=== PATIENT | male | born 1940 | race Caucasian/White ===

== ENCOUNTER 2019-10-05 10:06 | Inpatient (IN) | payer MEDICARE, BC, OTHER ==
[~2019-10-05] VITALS: Ht 190.5 cm; Wt 95.2 kg
--- OUTSIDE RECORDS SUMMARY | ~2019-10-05 | XMS | Clinical Summary ---
Demographics + + + | Address | [address] | | | [place] [address] | + + + | Home Phone | | + + + | Preferred Language | Unknown | + + + | Marital Status | | + + + | Mormon Affiliation | 1041 | + + + | Race | Unknown | + + + | Ethnic Group | Unknown | + + + Author + + + | Author | [facility] | | | and [place] | + + + | Organization | [facility] | | | and [place] | + + + | Address | Unknown | + + + | Phone | Unavailable | + + + Support + + +---------+ + | Name | Relationship | Address | Phone | + + +---------+ + | Josey Maxwell | ECON | Unknown | | + + +---------+ + Care Team Providers + +------+ + | Care Promotions Coordinator Name | Role | Phone | + +------+ + PCP | Unavailable | + +------+ + Allergies Not on File Medications Not on file Active Problems Not on file Social History + +-------+ +--------+------+ | Tobacco Use | Types | Packs/Day | Years | Date | | | | | Used | | + +-------+ +--------+------+ | Never Assessed | | | | | + +-------+ +--------+------+ + + + | Sex Assigned at | Date Recorded | | | | + + + | Not on file | | + + + Last Filed Vital Signs Not on file Plan of Treatment + + +-------+ + | Health Maintenance | Due Date | Last | Comments | | | | Done | | + + +-------+ + | Vaccine: | | | | | Dtap/Tdap/Td (1 - | 1 | | | | Tdap) | | | | + + +-------+ + | Vaccine: Zoster (1 | | | | | of 2) | 2 | | | + + +-------+ + | Vaccine: | | | | | Pneumococcal 65+ (1 | 7 | | | | of 1 - PPSV23) | | | | + + +-------+ + | Vaccine: Influenza | | | | | (#1) | 0 | | | + + +-------+ + Results Not on filefrom Last 3 Months"
--- OUTSIDE RECORDS SUMMARY | ~2019-10-05 | XMS | Clinical Summary ---
Demographics + + + | Address | [address] | | | [place] [address] | + + + | Home Phone | | + + + | Preferred Language | Unknown | + + + | Marital Status | | + + + | Quaker Affiliation | 1041 | + + + | Race | Unknown | + + + | Ethnic Group | Unknown | + + + Author + + + | Author | [facility] | | | and [place] | + + + | Organization | [facility] | | | and [...] Team Providers + +------+ + | Care Assistant Grocery Name | Role | Phone | + [...]
--- OUTSIDE RECORDS SUMMARY | ~2019-10-05 | XMS | Encounter Summary ---
Demographics + + + | Address | [address] | | | [place] [address] | + + + | Home Phone | | + + + | Preferred Language | Unknown | + + + | Marital Status | | + + + | Scientology Affiliation | 1041 | + + + | Race | Unknown | + + + | Ethnic Group | Unknown | + + + Author + + + | Author | [facility] | | | and [place] | + + + | Organization | [facility] | | | [...] Team Providers + +------+ + | Care Poultry Scalder Name | Role | Phone | + +------+ + PCP | Unavailable | + +------+ + Encounter Details +--------+ + + + + | Date | Type | Department | Care Team | Description | +--------+ + + + + | 01/23/ | [facility] | [facility] | | | | 1991 | Encounter | MED CTR XRAY [address] | | | | | | [place] [place] | | | | | | [place] [id number] | | | | | | [phone] | | | +--------+ + + + + Social History + +-------+ +--------+------+ | Tobacco [...] on file | | + + + documented as of this encounter Plan of Treatment Not on filedocumented as of this encounter Visit Diagnoses Not on filedocumented in this encounter"
--- OUTSIDE RECORDS SUMMARY | ~2019-10-05 | XMS | Encounter Summary ---
Demographics + + + | Address | [address] | | | [place] [address] | + + + | Home Phone | | + + + | Preferred Language | Unknown | + + + | Marital Status | | + + + | Evangelical Affiliation | 1041 | + + + | Race | Unknown | + + + | Ethnic Group | Unknown | + + + Author + + + | Author | [facility] | | | and [place] | + + + | Organization | [facility] | | | and [...] Team Providers + +------+ + | Care Small Products I Assembler Name | Role | Phone | + +------+ + PCP | Unavailable | + +------+ + Encounter Details +--------+ + + + + | Date | Type | Department | Care Team | Description | +--------+ + + + + | 01/23/ | [facility] | [facility] | | | | 1991 | Encounter | MED CTR XRAY [address] | | | | | | [address] [place] | | | | | | [place] [address] | | | | | | [phone] | | | +--------+ + + + [...]
[~2019-10-05 10:06] MED LIST: BETAMETHASONE D15 G3 TOP; BYSTOLIC20 MG PO; CARVEDILOL25 MG PO; CLARITIN10 M2 PO; COMBIVENT RESPIM4 GM INH; COUMADIN5 MG PO; ELIQUIS5 MG PO; FISH OIL 1,2001 EACH PO; FLUOXETINE HCL20 MG PO; FLUTICASONE PRO16 GM NS; HYDROCODON-ACE1 EA11 PO; INVOKAMET 150-1 EACH PO; INVOKANA300 MG PO; IRON159 MG PO; IRON325 M1 PO; JANUVIA100 MG PO; KELP150 MCG PO; LEVOTHYROXINE150 MCG PO; LIPITOR40 MG PO; LISINOPRIL20 MG PO; LOVENOX150 MG SUB-Q; LOVENOX40 MG SUB-Q; METFORMIN HCL500 MG PO; METOPROLOL SUCC25 MG PO; METOPROLOL TART25 MG PO; MILK OF MA400 MG/5 M PO; MIRALAX17 GM PO; MUCUS RELIEF D1 EACH PO; MUCUS RELIEF200 MG PO; NAPROXEN500 MG PO; NORCO 5-325 TA1 EACH PO; OMEPRAZOLE20 M1 PO; OXYCODONE HCL5 MG PO; PSEUDOEPHEDRINE60 MG PO; RANITIDINE HCL150 MG PO; VITAMIN C500 M2 PO; VITAMIN D31000 UNIT PO; XIGDUO XR 10 M1 EAC1 PO
[2019-10-05] MEDS ORDERED: TAMSULOSIN HCL0.4 MG PO (14:07)
[2019-10-05] MEDS ORDERED: GLYXAMBI 25 MG1 EACH PO (14:08)
--- NOTE | 2019-10-05 14:10 | NUR ---
79YR OLD MAN ADMITTED FROM ER VIA STRETCHER ACCOMPANIED BY TO ROOM 107. ABLE TO STAND AND MOVE TO BED IN ROOM UNASSISTED, PT IS ALERT/ORIENTED IN GOOD SPIRITS, REPORTS PAIN MEDICINE HE RECIEVED IN ER IS HELPING, NOTED RED, DRY AREA BACK OF NECK WITH QUITE A BIT OF SWELLING, ASKING FOR SOMETHING TO EAT, STATES HE IS REALLY HUNGRY, ORIENTED TO ROOM AND CALL LIGHT, LOOKING AT MENU, ORDERS NOTED.
[2019-10-05] MEDS ORDERED: STIOLTO RESPIMAT4 GM INH (14:13)
[2019-10-05] MEDS ORDERED: PREDNISONE10 MG PO (14:15)
[2019-10-05] MEDS ORDERED: SULFAMETHOXAZO1 EAC1 PO (14:16)
--- NOTE | 2019-10-05 14:54 | NUR ---
ATE 100% OF TRAY BROUGHT UP TO ROOM, RESTING COMFORTABLY. IS GOING HOME. PT WANTS TO TAKE A NAP. CALL LIGHT IN EASY REACH.
--- NOTE | 2019-10-05 15:40 | NUR ---
PT REQUESTING PAIN MEDICATION, STATES PRESSURE AND PAIN ACROSS BACK OF NECK IS BUILDING AGAIN, OXYCODONE 5MG GIVE, REPOSITIONED PILLOWS. CALL LIGHT IN EASY REACH.
--- NOTE | 2019-10-05 16:16 | NUR ---
PT REPORTS PAIN HAS NOT IMPROVED AFTER FIRST OXYCODONE. OXYCODONE REPEATED AT THIS TIME. WILL DISCUSS PAIN WITH DR HTOMASON.
--- NOTE | 2019-10-05 16:59 | NUR ---
PATIENT RESTING IN BED. VITAL SIGNS AND I&O DONE. HIGH BLOOD PRESSURE. RN NOTIFIED. CALL LIGHT WITHIN REACH. NO OTHER NEEDS AT THIS TIME
[2019-10-05] MEDS ORDERED: VENTOLIN HFA18 GM INH (17:10)
--- NOTE | 2019-10-05 17:38 | NUR ---
PT CONT TO REPORT NO PAIN RELIEF AFTER 2ND OXYCODONE. I HAD SPOKE WITH DR THOMASON AND DILAUDID WAS ORDERD AND GABAPENTIN FOR PAIN CONTROLL. DILAUDID 0.5MG IV GIVEN WITH GABAPENTIN. PT REPORTED GOOD RELIEF AFTER RECIEVING DILAUDID, SITTING UP EATING DINNER TRAY. STATES HE JUST NEEDS TO GET SOME SLEEP. STATES HE HAS NOT BEEN ABLE TO SLEEP FOR WEEKS.
--- NOTE | 2019-10-05 18:06 | NUR ---
PATIENT RESTING IN BED. PATIENT'S BLOOD PRESSURE RECHECKED AFTER HIS PAIN WENT DOWN. ICE WATER GIVEN. CALL LIGHT WITHIN REACH. NO OTHER NEEDS AT THIS TIME
--- NOTE | 2019-10-05 18:51 | NUR ---
PT ATE DINNER, UP TO BATHROOM AND CALLED FOR ASSISTANCE, STATES PAIN IN NECK WAS COMING BACK FULL FORCE. WARM PACK TO NECK WITH LITTLE RELIEF.DILAUDID 0.5MG IV GIVEN, BACK TO BED AND POSITIONED WITH PILLOWS FOR COMFORT. CALL LIGHT IN EASY REACH.
--- NOTE | 2019-10-05 19:01 | NUR ---
RECEIVED REPORT FROM WATSON BEASLEY. pt RESTING IN BED. DISCUSSED PAIN MANAGEMENT. NO REQUESTS AT THIS TIME. CALL LIGHT WITHIN REACH. WHITEBOARD UPDATED.
--- NOTE | 2019-10-05 20:27 | NUR ---
IN TO DO ASSESSMENT pt REPORTED 6/10 PAIN, PRN PAIN MEDICATION GIVEN (SEE MAR). DISCUSSED PAIN MANAGEMENT. ASSESSMENT DONE. VITALS AND I&O RECORDED. PROVIDED WATER. IV ABX INFUSING. NO FURTHER REQUESTS AT THIS TIME. CALL LIGHT WITHIN REACH.
--- NOTE | 2019-10-05 20:52 | NUR ---
PT CALLED D/T BEEPING IV PUMP. IV IS NOW SL. ASSISTED PT TO RESTROOM AND BACK TO BED. HE DENIES FURTHER NEEDS AT THIS TIME. CALL LIGHT IS CLOSE.
--- NOTE | 2019-10-05 22:28 | NUR ---
GAVE PT TWO PAPER TOWELS AND ANOTHER BLANKET PER HIS REQUEST. BEDSIDE TABLE AND CALL LIGHT IN REACH.
--- NOTE | 2019-10-05 22:55 | NUR ---
ROUNDED ON pt. REPORTED 5/10 PAIN. REFUSED PAIN MEDICATION AT THIS TIME "I WANT TO WAIT JUST A LITTLE BIT, I'LL CALL YOU WHEN I'M READY." PROVIDED FRESH WATER NO FURTHER REQUESTS AT THIS TIME. CALL LIGHT WITHIN REACH.
--- NOTE | 2019-10-06 00:42 | NUR ---
CALL LIGHT ON. pt UP TO VOID, SBA. PROVIDED WITH FRESH ICE WATER, AND PANTS. REPORTED THAT HIS PAIN IS "OKAY" AND REFUSED PAIN MEDICATION AT THIS TIME. RESTING IN BED. NO FURTHER REQUESTS AT THIS TIME. CALL SONA LINDSEY.
--- NOTE | 2019-10-06 01:02 | NUR ---
CALL LIGHT ON. pt REQUESTED PRN PAIN MEDS FOR 09/22 PAIN. GIVEN (SEE MAR). NO FURTHER REQUESTS AT THIS TIME. CALL LIGHT WITHIN REACH.
--- NOTE | 2019-10-06 02:10 | NUR ---
IN TO DO ASSESSMENT AND MEDS. pt RESTING IN BED. REPORTED THAT PAIN IS BETTER. REFUSED PAIN MEDICATION AT THIS TIME. NO CHANGES ON ASSESSMENT. IV ABX INFUSING. PROVIDED ICE. NO FURTHER REQUESTS AT THIS TIME. CALL LIGHT WITHIN REACH.
--- NOTE | 2019-10-06 03:30 | NUR ---
CALL LIGHT ON. IV ABX INFUSION COMPLETED. SL. NO FURTHER REQUESTS AT THIS TIME. PAIN "OKAY" REFUSED PAIN MEDICATION AT THIS TIME. CALL LIGHT WITHIN REACH.
--- NOTE | 2019-10-06 04:09 | NUR ---
CALL LIGHT ON. pt REQUESTED PRN PAIN MEDS FOR 08/22 PAIN. GIVEN (SEE MAR). PROVIDED ICE WATER. NO FURTHER REQUESTS AT THIS TIME. CALL LIGHT WITHIN REACH.
--- NOTE | 2019-10-06 06:45 | NUR ---
SCHEDULED MED PROVIDED. PT STATES PAIN IS 5/10, DENIES NEED FOR FURTHER INTERVENTION AT THIS TIME. NO OTHER NEEDS, CALL LIGHT IN REACH.
--- NOTE | 2019-10-06 07:05 | NUR ---
VITALS AND I&OS DONE AND CHARTED. BEDSIDE TABLE AND CALL LIGHT IN REACH.
--- NOTE | 2019-10-06 07:34 | NUR ---
Pt in bed resting, alert and oriented x4. Pt on room air, respirations even and non labored. Pt denies pain at this time. Personal supplies and call light within reach.
--- NOTE | 2019-10-06 07:57 | NUR ---
PATIENT RESTING IN BED. WHITE BOARD UPDATED. PATIENT REFUSED TO TAKE A SHOWER TODAY. CALL LIGHT WITHIN REACH. NO OTHER NEEDS AT THIS TIME
--- NOTE | 2019-10-06 09:32 | NUR ---
Oxycodone 10mg po admin for reports of 6/10 pain.
--- NOTE | 2019-10-06 09:42 | NUR ---
PATIENT RESTING IN BED. VITAL SIGNS AND I&O DONE. CALL LIGHT WITHIN REACH. NO OTHER NEEDS AT THIS TIME
--- NOTE | 2019-10-06 11:24 | NUR ---
CALL LIGHT ANSWERED. PATIENT ASKS FOR ICE AND DIET SODA. ICE AND DIET SODA GIVEN. CALL LIGHT WITHIN REACH. NO OTHER NEEDS AT THIS TIME
--- NOTE | 2019-10-06 13:11 | NUR ---
PATIENT RESTING IN BED. IN ROOM. VITAL SIGNS AND I&O DONE. CALL LIGHT WITHIN REACH. NO OTHER NEEDS AT THIS TIME
--- NOTE | 2019-10-06 15:13 | NUR ---
Pt resting in bed, eyes closed, respirations even and non labored. IV antibiotics infusing at this time. No notable distress. Personal supplies and call light within reach.
--- NOTE | 2019-10-06 16:59 | NUR ---
PATIENT RESTING IN BED. VITAL SIGNS AND I&O DONE. HIGH TEMPERATURE. RN NOTIFIED. CALL LIGHT WITHIN REACH. NO OTHER NEEDS AT THIS TIME
--- NOTE | 2019-10-06 17:01 | NUR ---
Notified Dr. Tirado regarding patient's most recent temp of 101.4f. Pending new orders to be placed for blood cultures and abx to be changed to vancomycin and ceftriaxone.
--- NOTE | 2019-10-06 17:33 | NUR ---
Blood cultures collected by lab. Admin Tylenol 650mg po for elevated temp of 101.4f.
--- NOTE | 2019-10-06 19:07 | NUR ---
RECEIVED REPORT FROM WATSON KNUTSON. YANELI CURRENTLY INFUSING. pt REPORTED THAT PAIN IS "OKAY" NO REQUESTS AT THIS TIME. WHITEBOARD UPDATED. CALL LIGHT WITHIN REACH.
--- NOTE | 2019-10-06 19:55 | NUR ---
IV PUMP BEEPING. ERROR RESOLVED. pt UP TO VOID AND BACK TO BED. ASSESSMENT DONE. pt REPORTED HIS PAIN IS "OKAY" REFUSED PAIN MEDICATION AT THIS TIME. RESTING IN BED. NO FURTHER REQUESTS AT THIS TIME. CALL LIGHT WITHIN REACH.
--- NOTE | 2019-10-06 21:28 | NUR ---
VITALS I&OS AND BLOOD SUGAR DONE AND CHARTED. EMPTIED GARBAGES. BEDSIDE TABLE AND CALL LIGHT IN REACH. PT NEEDS NOTHING AT THIS TIME.
--- NOTE | 2019-10-06 21:30 | NUR ---
IN TO DO VITALS AND GIVE MEDICATIONS. pt REPORTED HIS PAIN IS 3 OR 4/10. MEDICATIONS GIVEN (SEE MAR). NO FURTHER REQUESTS AT THIS TIME. CALL LIGHT WITHIN REACH.
--- NOTE | 2019-10-06 23:21 | NUR ---
ROUNDED ON pt. RESTING IN BED WITH EYES CLOSED, RESPIRATIONS REGULAR AND UNLABORED. CALL LIGHT WITHIN REACH.
--- NOTE | 2019-10-07 01:18 | NUR ---
ROUNDED ON pt. RESTING IN BED WITH EYES CLOSED, RESPIRATIONS REGULAR AND UNLABORED. CALL LIGHT WITHIN REACH.
--- NOTE | 2019-10-07 01:33 | NUR ---
ROOM TEMPERATURE INCREASED AND WARM BLANKET PROVIDED PER PT REQUEST. NO FURTHER NEEDS, CALL LIGHT IN REACH.
--- NOTE | 2019-10-07 02:53 | NUR ---
pt CALLED. REPORTED "TIGHTNESS IN MY NECK IT FEELS LIKE IT IS COMING BACK." REPORTED 7/10 PAIN. PRN PAIN MEDICATION GIVEN (SEE MAR). ASSESSMENT DONE. PROVIDED FRESH WATER. NO FURTHER REQUESTS AT THIS TIME. CALL LIGHT WITHIN REACH.
--- NOTE | 2019-10-07 05:15 | NUR ---
CALL LIGHT ON. pt REPORTED 8/10 PAIN. PRN PAIN MED GIVEN (SEE MAR). VITALS AND I&O RECORDED. NO FURTHER REQUESTS AT THIS TIME. CALL LIGHT WITHIN REACH.
--- NOTE | 2019-10-07 06:09 | NUR ---
pt RESTED MOST OF NIGHT. COMPLAINED OF PAIN IN EARLY AM. PRN PAIN MEDS X2. LEFT SIDE OF NECK REMAINS FIRM AND TENDER. VOIDING LARGE AMOUNTS. INDEPENDENT IN ROOM. IV SL, IV ABX. TOLERATING 60GM CARB DIET. ACCU CHECK ACHS, SS INSULIN. USES CALL LIGHT APPROPRIATLEY.
--- NOTE | 2019-10-07 07:40 | NUR ---
Pt in bed, alert and oriented x4. Pt on room air, respirations even and non labored. Pt reports his neck was very bothersome last night causing him to not sleep well. Breakfast ordered at this time. Oxycodone/tylenol in use for pain.
--- NOTE | 2019-10-07 10:23 | NUR ---
PATIENT IN BED RESTING. CALL LIGHT IN REACH. NO FURTHER NEEDS AT THIS TIME.
--- NOTE | 2019-10-07 11:03 | NUR ---
Oxycodone 10mg po admin for reports of 6/10 left neck pain.
--- NOTE | 2019-10-07 13:55 | NUR ---
PATIENT IN BED. CALL LIGHT IN REACH. NO FURTHER NEEDS AT THIS TIME.
--- NOTE | 2019-10-07 14:00 | NUR ---
Spoke with Jaime. He lives in [place] with his , Josey. He has good family support and plans on dc to [address]. will assist if he needs assistance after dc. Pt does not use any DME. States he and are active. Plans dc to home on discharge.
--- NOTE | 2019-10-07 15:01 | NUR ---
Patient resting, eyes closed, respirations are non labored. Pt has no notable distress. Personal supplies and call light within reach.
--- NOTE | 2019-10-07 18:07 | NUR ---
PATIENT IN BED WATCHING TV. PATIENT REFUSED LINEN CHANGE AT THIS TIME. CALL LIGHT IN REACH. NO FURTHER NEEDS AT THIS TIME.
--- NOTE | 2019-10-07 18:58 | NUR ---
Oxycodone 10mg po admin for reports of 7/10 pain.
--- NOTE | 2019-10-07 19:14 | NUR ---
RECEIVED REPORT FROM WATSON KNUTSON. pt UP TO VOID. CALL LIGHT WITHIN REACH. WHITEBOARD UPDATED.
--- NOTE | 2019-10-07 20:38 | NUR ---
IN TO DO ASSESSMENT AND MEDICATIONS. pt COMPLAINED OF 8/10 PAIN. DISCUSSED PAIN MANAGEMENT. DR BROWNING IN ROOM TO ASSESS, WILL PUT IN NEW ORDERS. VITALS AND I&O RECORDED. ASSESSMENT DONE. WOUND ON BACK OF HEAD OOZING PURULENT DRAINAGE. pt REFUSED TO HAVE BEDDING CHANGED AT THIS TIME. PROVIDED EDUCATION ON HYGIENE. WILL RETURN WITH PAIN MEDS WHEN AVAILABLE. CALL LIGHT WITHIN REACH.
--- NOTE | 2019-10-07 21:41 | NUR ---
IN TO GIVE PAIN MEDICATION, PAIN REMAINS 09/22. NO FURTHER REQUESTS AT THIS TIME. CALL LIGHT WITHIN REACH.
--- NOTE | 2019-10-07 22:18 | NUR ---
IN TO GIVE TYLENOL (SEE MAR). pt REPORTED A "SLIGHT" DECREASE IN PAIN, RATED 7/10. PROVIDED FOOD AND DRINK. NO FURTHER REQUESTS AT THIS TIME. WILL CALL WHEN UP TO VOID FOR PAIN MEDICATION. CALL LIGHT WITHIN REACH.
--- NOTE | 2019-10-07 23:28 | NUR ---
ROUNDED ON pt. RESTING WITH EYES CLOSED, RESPIRATIONS REGULAR AND UNLABORED. DID NOT WAKE TO QUIET VOICE. CALL LIGHT WITHIN REACH.
--- NOTE | 2019-10-08 00:15 | NUR ---
ROUNDED ON pt. RESTING IN BED WITH EYES CLOSED, RESPIRATIONS REGULAR. REMOVED FLUIDS NPO AT THIS TIME. CALL LIGHT WITHIN REACH.
--- NOTE | 2019-10-08 02:08 | NUR ---
ROUNDED ON pt. RESTING WITH EYES CLOSED, RESPIRATIONS REGULAR AND UNLABORED. CALL LIGHT WITHIN REACH.
--- NOTE | 2019-10-08 04:17 | NUR ---
ROUNDED ON pt. RESTING IN BED WITH EYES CLOSED, RESPIRATIONS REGULAR AND UNLABORED. CALL LIGHT WITHIN REACH.
--- NOTE | 2019-10-08 05:53 | NUR ---
WOKE pt. pt REPORTED "I SLEPT REALLY WELL, MY NECK MUST HAVE DRAINED A LOT." RATED PAIN 3/10. PRN PAIN MED GIVEN (SEE MAR). pt SHOWERED. PRE OP WIPES DONE. ASSESSMENT DONE. NECK APPEARS SLIGHTLY LESS SWOLLEN. STILL RED AND DRAINING. FRESH LINENS. VITALS AND I&O RECORDED. CALL LIGHT WITHIN REACH.
--- NOTE | 2019-10-08 07:51 | NUR ---
Pt resting, eyes closed, respirations even and non labored. Pt has no notable distress. Personal supplies and call light within reach.
--- NOTE | 2019-10-08 08:34 | NUR ---
PATIENT AWAKE IN BED. READY TO GO TO CT. WHITE BOARD UPDATED.
--- NOTE | 2019-10-08 09:00 | NUR ---
In to speak with pt. He is going for surgery today for abcess on neck.
--- NOTE | 2019-10-08 09:01 | NUR ---
PATIENT BACK TO ROOM FROM CT. IV FLUIDS RECONNECTED. PATIENT IS AWAKE AND ORIENTED DENYING ANY PAIN AT THIS TIME. VITALS BEING TAKEN BY HOLISTIC SPECIALIST. FLUIDS RESTARTED. PATIENT LYING SEMI-FOWLERS WITH CALL LIGHT AND BEDSIDE TABLE WITHIN REACH. PATIENT EDUCATED ON POSSIBLY NOT TAKING HIS MEDICATIONS PRIOR TO PROCEDURE TODAY BUT THAT WE MY GIVE HIS BP MEDICATION BEFORE. PATIENT DENIES ANY OTHER NEEDS AT THIS TIME.
--- NOTE | 2019-10-08 09:03 | NUR ---
PATIENT VITAL SIGNS DONE AND I&O'S. NO FURTHER NEEDS AT THIS TIME.
--- NOTE | 2019-10-08 10:07 | NUR ---
Pt off to surgery at this time. Morning dose of lopressor admin per Dr. Hermosillo's request.
--- NOTE | 2019-10-08 10:19 | NUR ---
PATIENT LINENS CHANGED AND PATIENT HAD A SHOWER EARLY THIS MORNING. NO FURTHER NEEDS AT THIS TIME.
--- NOTE | 2019-10-08 10:34 | NUR ---
MED REC COMPLETE
--- NOTE | 2019-10-08 11:28 | NUR ---
10/08/19 1128 Val Whitaker 1121-PATIENT ARRIVED TO PACU ON 6L MASK NONAROUSABLE. RR EVEN. ORAL AIRWAY IN PLACE. DRESSING TO LEFT NECK CDI. AFIB. IVF INFUSING. NEW IV TO LEFT HAND WILL REMOVE RIGHT ARM IV.
--- NOTE | 2019-10-08 11:59 | NUR ---
PT TAKEN TO OR FOR SURGERY. WILL FOLLOW UPON RETURN
--- NOTE | 2019-10-08 12:15 | NUR ---
PT RETURNED FROM PACU. REPORT RECEIVED FROM WATSON ROSARIO. PT RESTING IN BED. DROWSY BUT AWAKENS TO VOICE. PT REPORTS 7/10 PAIN IN BACK OF NECK. SEE MAR FOR MEDICATION GIVEN. PT REPORTS HUNGER. JELLO PROVIDED. PT TOLERATES WITHOUT NASUEA. ASSESSMENT DONE. DRESSING TO BACK OF NEXT SHOWS MODERATE AMOUNT OF RED DRAINAGE. MEDICATIONS GIVEN. CBG = 177. PT TOLERATING PO. INSULIN GIVEN. CPOX IN PLACE WITH O2 DROPPING TO 88% WHEN PT IS SLEEPING. O2 AT 2L BY NC PLACED. O2 SATURATIONS CLIMB TO ABOVE 92%. PTS AT BEDSIDE. 7-UP AND WALLY PROVIDED NO ADDITIONAL REQUESTS OR COMPLAINTS AT THIS TIME. CALL LIGHT WITHIN REACH.
--- NOTE | 2019-10-08 13:17 | NUR ---
VITALS AND ASSESMENT DUE. PT REPORTS PAIN IS IMPROVING NOW 07/23. PT DENIES NEED FOR ADDITIONAL PAIN MEDICATION AT THIS TIME. ASSESSMENT DONE. MODERATE AMOUTN OF RED DRESSING REMAINS ON BANDAGE, SMALL AMOUNT OF NEW DRAINAGE NOTED. O2 SATURATIONS IMPROVING WITH 2L O2 BY NC, NOW 95-98%. PT REMAINS ON 2L AT THIS TIME. MEDICATIONS FROM THIS MORNING GIVEN. PT TOLERATING 7-UP AND CRACKERS. NO ADDITIONAL REQUESTS OR COMPLAINTS AT THIS TIME. CALL LIGHT WITHIN REACH.
--- NOTE | 2019-10-08 13:45 | NUR ---
REPORT GIVEN TO VINCENT HUFFMAN RN. MED/SURG STAFF RESUMING CARE OF PT.
--- NOTE | 2019-10-08 14:22 | NUR ---
Vital signs and assessment complete. Pt awake, a&ox4, on 2L oxygen per nc, respirations even and non labored. Pt reports pain to left neck is improving, 4/10 pain scale level reported. IV LR infusing at this time at 85ml/hr. Dressing to left neck is CDI. Pt denies sob and or airway distress, hob elevated. at bedside. Saline crackers provided to pt per his request. Pt denies needs. Personal supplies and call light within reach.
--- NOTE | 2019-10-08 15:23 | NUR ---
VITAL SIGNS DONE BY NURSE FOR POST OP. NO I&O'S DOCUMENTED PER PATIENT IN SURGERY.
--- NOTE | 2019-10-08 15:28 | NUR ---
Tylenol 1000mg po admin per pt request for reports of 6/10 left neck pain. Pt resting, reports he is doing fine. Left neck dressing is CDI. Vital signs are stable. LR Infusing at 85ml/hr. Pt has no need. cpox intact, 94% on 2l nc. Personal supllies and call light within reach.
--- NOTE | 2019-10-08 16:36 | NUR ---
TO PATIENT ROOM FOR VITALS. PATIENT LYING SEMI-FOWLERS WITH EYES CLOSED. PATIENT STATES "HOW MUCH JUICE DO I HAVE LEFT?" LOOKING AT THE IV FLUID HANGING. PT TOLD THAT THERE IS ABOUT HALF A BAG OR 500ML LEFT. PATIENT IS SATISFIED. PAIN ASSESSED, PATIENT STATES, "IT'S ABOUT A THREE OR FOUR, NOT BAD." VITALS TAKEN, ALL WNL. PATIENT DENIES ANY FURTHER NEEDS AT THIS TIME. CALL LIGHT AND BEDSIDE TABLE WITHIN REACH.
--- NOTE | 2019-10-08 18:00 | NUR ---
TO PATIENT ROOM FOR DRESSING CHANGE. DRESSING SATURATED WITH SANGUINEOUS FLUID. TWO STRIPS OF GAUZE NOTED TO BE PACKED INTO THE SURGICAL INCISIONS. OUTER ABD PADS REMOVED, AREA CLEANED OF DRY BLOOD AND GAUZE AND ABD PADS REAPPLIED TO AREA. ABSORBANT PAD PLACED BEHIND PATIENTS HEAD TO CATCH ANY DRAINAGE THAT MAY BE PRESENT THIS EVENING. PATIENT EDUCATED ON THE NEED TO CHANGE THE DRESSING IF IT BECOMES SATURATED AGAIN. PATIENT VERBALIZES UNDERSTANDING. PATIENT DENIES PAIN AT THE SITE AND STATES, "IT'S A LOT BETTER THAN BEFORE." PATIENT LYING IN BED SEMI-FOWLERS WITH SCDS ON, AND BEDSIDE TABLE AND CALL LIGHT WITHIN REACH. PATIENT GIVEN ICE FOR DIET SODA AND CRACKERS PER PATIENT REQUEST.
--- NOTE | 2019-10-08 18:28 | CONS ---
[facility] [address], [place] [address] Signed DATE OF CONSULTATION: 10/07/2019 TIME: 8:50 p.m. PROBLEM: Possible abscess posterior neck. Recent treatment for advanced cellulitic changes of neck. HISTORY: This 79-year-old white man has diabetes. He was admitted by Dr. Campo on October 05, 2019 after presentation in the emergency room where he was evaluated by Dr. Barger. He was noted to have pain and swelling in the left posterior neck, which had been developing over the preceding week or so. He notes that the area started with a "rash," several weeks previous to that was associated with small bumps and blisters, which was considered likely an episode of zoster. He saw a sample shoe inspector and reworker earlier in that week, who prescribed prednisone and Bactrim, but he had progressive symptoms. His evaluation in the emergency room showed him to have no acute distress or systemic toxicity, however, the skin in the posterior neck was warm and dry without rash, bruising, or discoloration, but swollen and [place]emat[place]. [place] [id number]. Other lab studies were normal. A CT scan of the neck was performed, which showed an area of cellulitis within the subcutaneous fat of the posterior and left posterolateral neck without organized abscess. He was admitted by Dr. Campo on the basis of cellulitic changes of the posterior neck, likely a secondary infection from herpes zoster. IV clindamycin was initiated and diabetes management with sliding scale insulin undertaken. The patient has improved quite a bit, though began having purulent discharge in the past [address] Chacon, who has now assumed his care as the hospitalist, notes possibility of abscess at this point rather than simple cellulitis. White count is noted to have been improved and IV Rocephin antibiotic had been beneficial. He has been treated with vancomycin additionally. Consideration has been made for an abscess drainage on that basis. PAST MEDICAL HISTORY: Does include atrial fibrillation for which he is chronically anticoagulated with Eliquis. He also has benign prostatic hypertrophy for which he takes Flomax. He also has reflux in addition to type 2 diabetes. Hypothyroidism is noted and history of depression also noted. REVIEW OF SYSTEMS: Electronically Signed By: REGINA BROWNING MD 10/08/19 1828 PATIENT NAME: BENNY COHEN CONSULTATION DATE OF : 44 REPORT #: [id number] PHYSICIAN: REGINA BROWNING MD PCP: CARMENCITA RAPP NP REPORT IS CONFIDENTIAL AND NOT TO BE RELEASED WITHOUT AUTHORIZATION [facility] [address], [place] [address] Signed He denies any shortness of breath or chest pain. The pain in his back of his neck and occipital area is much improved compared to admission, but is still quite uncomfortable for him. He is being treated with opiates and lesser amounts of Tylenol. REVIEW OF SYSTEMS: Denies any shortness of breath or chest pain. Has no precordial chest pain. PHYSICAL EXAMINATION: GENERAL: This is a pleasant white man, laying on his right side. On his pillow, there is a considerable amount of purulent discharge areas. He is alert and oriented, not systemically toxic to my examination. NECK: The posterior neck shows a "bowl neck" appearance with several areas of excoriation and some indeterminate areas of recent purulent discharge. Palpation reveals a thick doughy edematous area. No specific fluctuant mass per se. There is small amount of ecchymosis. Anterior neck is normal and he has no airway problems. He opens his mouth well. He is able to extend his neck reasonably well. CHEST: Shows normal respiratory excursion. ABDOMEN: Quite obese, but soft. EXTREMITIES: Show no clubbing, cyanosis, or edema. LABORATORY STUDIES: Today show white count of 11.1, hematocrit of 44.7, platelets 212,000. He has not had any chemistries since admission. ASSESSMENT AND PLAN: I reviewed his CT scan of the neck from 2 days ago. The tissue planes are all edematous. There is not a fluid collection noted at that time, but he is now having egress of purulent material from what appears to be a diffuse edematous area of the posterior neck. Incision and drainage of presumed abscess have been considered by Dr. Chacon. I think that would be ortiz if there is a fluid collection and most likely there is. Actual location may not be readily apparent, however. Given the relatively complex and tight fascial spaces of the posterior neck, consideration is made for possible repeat imaging study. Obviously, if there is a deep abscess, it should be fully drained and at present, it is unclear exactly where that might be. We will plan to do drainage of this area of the neck tomorrow, but we will consider imaging study in the morning to better localize where such an abscess might be located. If no specific fluid collection is noted on the CT scan, he still may benefit from incision and drainage to better provide egress of purulent material which appears to be ongoing. This would be a more diffuse drainage procedure obviously. The risks of bleeding, infection, and so forth were reviewed with him. He understands and wished to proceed. Electronically Signed By: REGINA BROWNING MD 10/08/19 8408 PATIENT NAME: VICKIBENNY CONSULTATION DATE OF : 44 REPORT #: [id number] PHYSICIAN: REGINA BROWNING MD PCP: CARMENCITA RAPP NP REPORT IS CONFIDENTIAL AND NOT TO BE RELEASED WITHOUT AUTHORIZATION [address] [place] [address] Signed MD RADHA Guevara/NEERUL /[id number] cc: AYSE Kramer MD Cynthia Rasch, MD Copies: ENOC CHACON MD, CYNTHIA MD ~ Electronically Signed By: REGINA BROWNING MD 10/08/19 1828 PATIENT NAME: BENNY COHEN CONSULTATION DATE OF : 44 REPORT #: [id number] PHYSICIAN: REGINA BROWNING MD PCP: CARMENCITA RAPP NP REPORT IS CONFIDENTIAL AND NOT TO BE RELEASED WITHOUT AUTHORIZATION
--- NOTE | 2019-10-08 19:04 | NUR ---
RECEIVED REPORT FROM WATSON HENRY. pt RESTING IN BED. REPORTED 3/10 PAIN AT THIS TIME. DENIES NEED FOR PAIN MEDICATION. DRAINAGE NOTED ON ABD PADS AND GAUZE. SANGUINEOUS. pt DENIES NEEDS AT THIS TIME. CALL LIGHT WITHIN REACH. WHITEBOARD UPDATED.
--- NOTE | 2019-10-08 20:40 | NUR ---
IN TO DO ASSESSMENT. pt WOKE TO VOICE. ASSESSMENT DONE. DRESSING CHANGED SANGUINOUS DRAINAGE NOTED. GAUZE AND ABD PADS IN PLACE. MEDICATIONS GIVEN (SEE MAR). CALL LIGHT WITHIN REACH.
--- NOTE | 2019-10-08 21:00 | NUR ---
ASSISTED WATSON JAIME WITH DRESSING CHANGE. pt PROVIDED WITH TEA, DIET SPRITE. RESTING IN BED. VSS. NO CONCERNS AT THIS TIME.
--- NOTE | 2019-10-08 23:35 | NUR ---
ROUNDED ON pt. RESTING IN BED WITH EYES CLOSED, RESPIRATIONS REGULAR AND UNLABORED. CALL LIGHT WTIHIN REACH.
--- NOTE | 2019-10-09 01:20 | NUR ---
ROUNDED ON pt. RESTING IN BED WITH EYES CLOSED, RESPIRATIONS REGULAR AND UNLABORED. CALL LIGHT WITHIN REACH.
--- NOTE | 2019-10-09 01:50 | NUR ---
CALL LIGHT ANSWERED. SBA TO RESTROOM FOR VOID AND LOOSE BM. BACK IN BED, BLEEDING NOTED FROM TWO SITES WITH LOOP DRAIN. DRESSING CHANGED WITH RN ADDISON AND RN TAMI ASSIST. VSS. DIET SPRITE PROVIDED. PRIMARY RN IN ROOM FOR IV ANTIBIOTIC ADMINISTRATION.
--- NOTE | 2019-10-09 02:21 | NUR ---
pt UP TO THE TOILET AND BACK TO BED. DRESSING CHANGED. SANGUINOUS DRAINAGE. GUAZE AND ABD PADS IN PLACE. ASSESSMENT DONE. pt REPORTED PAIN IS "OKAY" DENIES NEED FOR PAIN MEDICATION AT THIS TIME. IV ABX INFUSING. CALL LIGHT WITHIN REACH. PROVIDED FOOD AND DRINK.
--- NOTE | 2019-10-09 05:35 | NUR ---
IN TO DO VITALS. CHANGED DRESSING LESS DRAINAGE THAN LAST DRESSING CHANGE. VITALS AND I&O RECORDED. pt DECLINED TO VOID AT THIS TIME. PRN PAIN MED GIVEN FOR 3/10 PAIN "IT'S CLIMBING JUST A LITTLE." pt RESTING IN BED. CALL LIGHT WITHIN REACH.
--- NOTE | 2019-10-09 05:36 | NUR ---
pt RESTED MOST OF SHIFT. DRESSING TO NECK CHANGED X3. SANGUINOUS DRAINAGE. DRAINAGE AMOUNT HAS DECREASED THROUGHOUT SHIFT. LOOP DRAINS X5. PRN PAIN MEDS X2. SBA. TOLERATING 60 CARB DIET. IV SL, IV ABX. USES CALL LIGHT APPROPRIATELY.
--- NOTE | 2019-10-09 08:00 | NUR ---
PATIENT UP AND INTO BATHROOM. LINENS CHANGED. BANDAGE FELL OFFIN BED, NECK LOOKS GOOD, NO DRAINAGE. RESP. LAKEISHA IN TO SEE PATIENT, WANTS PATIENT TO USE "IS" 10X AN HOUR WHEN AWAKE, PATIENT AGREED. DR BROWNING IN TO SEE PATIENT, GAVE OK TO SHOWER, RN NOTIFIED. BREAKFAST ORDERED BY CATEGORY ANALYST, NO OTHER NEEDS AT THIS TIME
--- NOTE | 2019-10-09 08:20 | NUR ---
PT SITTING UP ON EDGE OF BED WAITING FOR BREAKFAST, DR BROWNING IN ROOM TO SEE PT, PLEASED WITH PROGRESS, PLAN TO DC HOME TODAY, SET UP TO TAKE SHOWER, DRSG REMOVED, REDNESS AND SWELLING MUCH IMPROVED, LOOP DRAINS IN PLACE. PT DENIES ANY NEEDS.
--- NOTE | 2019-10-09 08:20 | OR ---
[facility] [address], [place] [address] Signed DATE OF OPERATION: 10/08/2019 SURGEON: Regina Browning MD DATE OF PROCEDURE: 10/08/2019 PREOPERATIVE DIAGNOSIS: Left posterior complex multiple neck abscesses with extensive cellulitis. POSTOPERATIVE DIAGNOSIS: Left posterior complex multiple neck abscesses with extensive cellulitis. PROCEDURES: 1. Exam under anesthesia. 2. Incision and drainage and debridement of multiple posterior neck abscesses and trabeculated soft tissue. 3. Debridement of necrotic fat. 4. Placement of multiple wound seton (five). ANESTHESIA: General LMA; Melanie Tinoco CRNA. INDICATION: This 79-year-old white man has diabetes and has been admitted to the hospital on October 05, 2019 with marked edema and swelling and erythema of the left posterior neck. This was thought likely related to secondary excoriation from zoster episode more than a week ago. A CT scan was done at the time of his presentation to the emergency room by Dr. Tom, which showed edema and no sign of fluid collection. He was treated by the hospitalist, Dr. Campo with broad-spectrum antibiotics ultimately including Rocephin and vancomycin. He began yesterday having spontaneous drainage of purulent material from multiple punctate areas of the neck. Consultation was undertaken by Dr. Tirado, who assumed the hospitalist's role from Dr. Campo for consideration of possible abscess needing drainage. CT scan of the neck was performed this morning confirming multiple areas of edema and inflammation, no specific fluid collection noted, but small bubbles in the soft tissue to my evaluation and I conferred with Dr. Beltran, radiologist on this as well. He is now to undergo incision and drainage of the neck with breakdown of loculations, drainage of abscess fluid as necessary and other indicated procedures. He may well require Electronically Signed By: REGINA BROWNING MD 10/09/19 0820 PATIENT NAME: BENNY COHEN OPERATIVE REPORT DATE OF : 44 REPORT #: [id number] PHYSICIAN: REGINA BROWNING MD PCP: CARMENCITA RAPP NP REPORT IS CONFIDENTIAL AND NOT TO BE RELEASED WITHOUT AUTHORIZATION [facility] [address], [place] [address] Signed multiple drains depending on findings. He understands the risks of bleeding, infection, nerve injury (unlikely) and other unforeseen complications and wished to proceed. FINDINGS: Indeed the skin and soft tissue was quite edematous and quite importantly he did have multiple loculated fluid collections requiring breakdown of the trabecular soft tissue. The process extended essentially from the midline posteriorly to the posterior aspect of the sternocleidomastoid muscle. Ultimately numerous trabeculations and some necrotic fat and so forth was debrided and removed and purulence completely drained. Counter incisions were made to allow for placement of yellow vessel loops. Copious irrigation of the space was undertaken including irrigation with dilute solution of chlorhexidine. DESCRIPTION OF PROCEDURE: The patient was brought to the operating room, given a general LMA type anesthetic. As the dominant part of his problem was in the left posterior neck, he was placed in the right lateral decubitus position. Careful padding of the axilla, hips, and so forth was undertaken as usual. The posterior neck and so forth area were photographed and prepared with a Betadine based solution. The patient already been on systemic antibiotics continually and no additional antibiotic was given immediately preoperatively. The area of most fluctuance and area where there was stigmata of prior drainage was interrogated with a hemostat and there was no free connection there that could be seen and on that basis, an incision was made with a #15 blade. A Hemostat was used to insinuate the site through the thick dermis encountering thick purulent material. cultures were obtained. Photographs were additionally taken. Breakdown of loculations was undertaken extended anteriorly and an area at least 12 cm anterior to this was tented and incised and a yellow vessel loop placed. Further debridement with hemostats was undertaken, breaking down multiple loculations that had purulent collections. Superior to this in the posterior aspect was another similar such site. This was incised as well and trabeculations broken down. The whole area was probably a contiguous infection, but by multiple septae and trabeculations, which required extensive debridement and breakdown of loculations. A counter incision was made anterior on that aspect as well as and the yellow vessel loop placed. In total, superior, posterior, and inferior and superior aspects were broken down fully and a total of five yellow vessel loops placed to allow for ongoing drainage postoperatively. Once all the trabeculations were broken down and purulent material completely withdrawn with suction and so forth all the spaces were irrigated with a dilute chlorhexidine solution and ultimately saline solution. Plain gauze was then applied as was an ABD pad. Photographs were taken Electronically Signed By: REGINA BROWNING MD 10/09/19 0820 PATIENT NAME: BENNY COHEN OPERATIVE REPORT DATE OF : 44 REPORT #: [id number] PHYSICIAN: REGINA BROWNING MD PCP: CARMENCITA RAPP NP REPORT IS CONFIDENTIAL AND NOT TO BE RELEASED WITHOUT AUTHORIZATION [address] [address] Signed throughout the procedure. The patient was returned to the supine position ultimately extubated and transferred to recovery room in good condition. Blood loss was about 25 mL in aggregate. MD RADHA Guevara/FELIPE /[id number] cc: MD Lilly Guaman, MD Dominic Campo, MD Carmencita Rapp, AYSE Copies: RICO TOM MD,DOMINIC JONES MD, MD, JENNIFER NP ~ Electronically Signed By: REGINA BROWNING MD 10/09/19 0820 PATIENT NAME: BENNY COHEN OPERATIVE REPORT DATE OF : 44 REPORT #: [id number] PHYSICIAN: REGINA BROWNING MD PCP: CARMENCITA RAPP NP REPORT IS CONFIDENTIAL AND NOT TO BE RELEASED WITHOUT AUTHORIZATION
--- NOTE | 2019-10-09 09:00 | NUR ---
VITALS AND I&OS CHARTED. SET UP FOR SHOWER, PATIENT WILL CALL IS ASSISTANCE IS NEEDED.
--- NOTE | 2019-10-09 09:10 | NUR ---
Spoke with Jaime. He plans on dc this afternoon. Continues to deny need for dc, will pick him up on discharge. He is aware of follow up appointments and spoke with pharmacy yesterday.
--- NOTE | 2019-10-09 10:23 | NUR ---
TOLERATED SHOWER WELL, REPORTS PRESSURE BACK OF NECK MUCH IMPROVED, LOOSE DRSG APPLIED. REQUESTED PAIN MEDICATION, OXYCODONE 5MG GIVEN, RESTING ON BED WATCHING TV.
--- NOTE | 2019-10-09 11:07 | NUR ---
PT ALERT, ORIENTED AND LAYING IN BED WATCHING TV. PT STATES HE IS DOING MUCH BETTER, INCISION ON L SIDE OF NECK STILL HEALING. PT SEEMS EXCITED TO DC TODAY. EXTENDED A BLESSING
--- NOTE | 2019-10-09 14:00 | NUR ---
VITALS AND I&OS CHARTED. CALL LIGHT IN REACH
--- NOTE | 2019-10-09 14:31 | NUR ---
DR CHACON IN TO SEE PT. AGREED HE SHOULD STAY ONE MORE NIGHT FOR ABX, PREDNISONE CREAM TO NECK NOTED. PT DENIES ANY NEEDS, RESTING ON BED WATCHING TV PROGRAM.
--- NOTE | 2019-10-09 17:00 | NUR ---
VITALS, BLOOD GLUCOSE, AND I/O'S HAVE BEEN CHARTED. PT IS LAYING IN BED. WILL NOTIFY NURSE ABOUT PTS NECK BANDAGE.
--- NOTE | 2019-10-09 18:00 | NUR ---
ATE 100% OF DINNER, LAYING ON BED WATCHING TV PROGRAM, SCHEDULED ABX INFUSING. DENIES ANY NEEDS.
--- NOTE | 2019-10-09 19:05 | NUR ---
SHIFT REPORT RECEIVED FROM [facility] WATSON BEASLEY AT BEDSIDE. PT AWAKE AND RESTING IN BED, DRESSING TO BACK OF HEAD, LOOP DRAINS INTACT AND SMALL AMOUNT OF SEROSANGUINEOUE DRAINAGE TO GAUZE. REDDNESS NOTED TO CHEST, WILL MONITOR. PER WATSON DIETZ, REDDNESS IMPROVING. BOARD UPDATED. CALL LIGHT IN REACH. NO NEEDS VERBALIZED.
--- NOTE | 2019-10-09 20:14 | NUR ---
PRN TYLENOL GIVEN FOR 6/10 PAIN IN BACK OF HEAD. NO FURTHER NEEDS, CALL LIGHT IN REACH.
--- NOTE | 2019-10-09 21:30 | NUR ---
TOOK PT VITALS, I&Os ARE DONE, ACLL LIGHT IN REACH
--- NOTE | 2019-10-09 21:37 | NUR ---
VITALS, I&OS AND BLOOD SUGAR DONE AND CHARTED. BEDSIDE TABLE AND CALL LIGHT IN REACH.
--- NOTE | 2019-10-09 21:44 | NUR ---
ASSESSMENT COMPLETE, SCHEDULED MEDS GIVEN (SEE EMAR). PT AWAKE AND RESTING IN BED. VSS, I&O'S COMPLETE. DRESSING CHANGE TO BACK OF HEAD COMPLETE, ABD PADS IN PLACE, LOOP DRAINS REMAIN INTACT. PT DENIES NAUSEA AND REPORTS TOLERABLE 5/10 PAIN. PRN OXYCODONE OFFERED, DECLINED BY PT. PT STATES, "THE TYLENOL ACTUALLY HELPS MORE THAN THE OXY". NO FURTHER NEEDS, PARTIAL BED CHANGE ALSO COMPLETED. CALL LIGHT IN REACH.
--- NOTE | 2019-10-10 00:24 | NUR ---
PT RESTING IN BED, EYES CLOSED. RR EVEN AND UNLABORED. NO DISTRESS OR SIGNS OF PAIN NOTED. CALL LIGHT IN REACH.
--- NOTE | 2019-10-10 02:15 | NUR ---
ASSESSMENT COMPLETE, SCHEDULED IV VANCO INFUSING. SITE WNL. PT REPORTS 6/10 PAIN, PRN TYLENOL ALSO GIVEN. DRESSING TO BACK OF HEAD REINFORCED WITH TAPE. LOOP DRAINS INTACT. PT DENIES NAUSEA, SNACK PROVIDED. NO FURTHER NEEDS. CALL LIGHT IN REACH.
--- NOTE | 2019-10-10 03:33 | NUR ---
IV VANCO COMPLETE, PUMP CLEARED. IV SITE WNL. PT DENIES ADDITIONAL NEEDS, CALL LIGHT IN REACH.
--- NOTE | 2019-10-10 06:18 | NUR ---
VITALS / I&Os DONE, RN IN FOR AM ASSESMENT, PT NEEDS NOTHING FUTHER
--- NOTE | 2019-10-10 06:20 | NUR ---
VITALS AND I&OS DONE AND CHARTED. GARBAGES EMPTIED AND ROOM CLEANED UP. FRESH SODA PER PT REQUEST. BEDSIDE TABLE AND CALL LIGHT IN REACH. NEW SVETLANA GIVEN FOR HIS PILLOW.
--- NOTE | 2019-10-10 06:20 | NUR ---
SCHEDULED THYROID MED GIVEN (SEE EMAR). DRESSING TO BACK OF HEAD REPLACED, ABD PADS X2 IN PLACE. LOOP DRAINS INTACT. PT APPEARS IN GOOD SPIRITS, NO ADDITIONAL NEEDS VERBALIZED. CALL LIGHT IN REACH.
--- NOTE | 2019-10-10 08:15 | NUR ---
PT STATES HE SLEPT LAST NIGHT, UP EARLY, ORDERED BREAKFAST, GETTING READY TO GET INTO SHOWER, REDNESS AND DRAINAGE A LITTLE LESS THIS MORNING, REDNESS FRONT OF NECK AND CHEST MUCH IMPROVED. DENIES ANY NEEDS OR CONCERNS.
--- NOTE | 2019-10-10 08:37 | NUR ---
Pt. got up and took a shower. Independantly. Bed linens were changed. Breakfast try was removed from room. Room picked up. Bathroom tidied up after shower, water wiped up off of the floor.
--- NOTE | 2019-10-10 09:34 | NUR ---
IV ALARMING. IV SITE ASSESSED TO BE A POSITIONAL ISSUE WITH THE PUMP. ROLLED DRAW SHEET PLACED UNDER PATIENTS ARE TO HELP KEEP IT STRAIT AND FOR NOW THE IV PUMP IS NOT ALARMING. RECHECKED PATIENTS BP, 103/66 (75) AT THIS TIME. O2 SATURATION 91% ON 3l NC, PATIENT STATES, "I FELL TIRED" WHEN ASKED HOW SHE WAS FEELING. PATIENT DENIES PAIN OR ANY OTHER NEEDS AT THIS TIME. IN BED LYING SEMI-FOWLERS WITH THREE RAILS UP. BEDSIDE TABLE, CALL LIGHT, AND PHONE WITHIN REACH.
[2019-10-10] MEDS ORDERED: DOXYCYCLINE HY100 MG PO (13:00)
--- NOTE | 2019-10-10 13:11 | NUR ---
PT ALERT, ORIENTED AND WAITING FOR DC. PT ADMITTED THIS HAS BEEN A CHALLENGE FOR HIM AND SOMETHING HE DOESN'T WANT TO EXPERIENCE AGAIN. PT THANKED ME FOR VISITING. GAVE BLESSING, WILL FOLLOW NEEDED
== END 2019-10-10 14:00 | disposition home or self-care (01) | DRG 581 ==
LOC: ED 10:06 → MS 10:09
PROVIDERS: Surgery; ADMIT Internal Medicine
PROC: 0J950ZZ Drainage of Left Neck Subcutaneous Tissue and Fascia, Open Approach (ICD-10-PCS; principal; 2019-10-08 11:00)
DX: L03.221 Cellulitis of neck (principal); B95.62 Methicillin resistant Staphylococcus aureus infection as the cause of diseases classified elsewhere; Z20.828 Contact with and (suspected) exposure to other viral communicable diseases; E11.65 Type 2 diabetes mellitus with hyperglycemia; I48.91 Unspecified atrial fibrillation; M79.89 Other specified soft tissue disorders; K59.00 Constipation, unspecified; N40.0 Benign prostatic hyperplasia without lower urinary tract symptoms; K21.9 Gastro-esophageal reflux disease without esophagitis; E03.9 Hypothyroidism, unspecified; F32.9 Major depressive disorder, single episode, unspecified; Z79.899 Other long term (current) drug therapy; Z88.0 Allergy status to penicillin
CPT/HCPCS: 00300; 36415; 70491; 70492; 80048; 80053; 80202; 82565; 84520; 85007; 85025; 85032; 85651; 87070; 87077; 87186; 87205; 94762; 99284-25; A9270; C9803; J0696; J1170; J1644; J1815; J1885; J2001; J2250; J2405; J2704; J3010; J3370; J3490; J7040; J7060; J7121; Q9967